=== PATIENT | female | born 1945 | race Two or more races ===

== ENCOUNTER 2025-01-07 21:25 | Inpatient (IN) | payer OTHER, MEDICAID ==
[~2025-01-07] VITALS: Ht 154.9 cm; Wt 51.5 kg
[2025-01-07 22:01] LABS: BASOPHILS # (AUTO) 0.1 K/UL (0.0-0.2); BASOPHILS % (AUTO) 0.7 % (0.0-2.0); EOSINOPHILS # (AUTO) 0.4 K/uL (0.0-0.7); EOSINOPHILS % (AUTO) 4.1 % (0.0-7.0); HEMATOCRIT 38.7 % (31.2-41.9); HEMOGLOBIN 12.6 g/dL (10.9-14.3); LYMPHOCYTES # (AUTO) 2.2 K/uL (0.8-4.8); LYMPHOCYTES % (AUTO) 24.4 % (20.5-51.5); MEAN CORPUSCULAR HEMOGLOBIN 28.9 uug (24.7-32.8); MEAN CORPUSCULAR HGB CONC 33 g/dL (32.3-35.6); MEAN CORPUSCULAR VOLUME 88.5 fL (75.5-95.3); MONOCYTES # (AUTO) 0.6 K/uL (0.1-1.30); MONOCYTES % (AUTO) 7.3 % (0.0-11.0); NEUTROPHILS # (AUTO) 5.6 K/uL (1.8-8.9); NEUTROPHILS % (AUTO) 63.5 % (38.5-71.5); PLATELET COUNT (AUTO) 299 K/uL (179-408); RED BLOOD CELL COUNT(AUTO) 4.37 MIL/uL (3.63-4.92); WHITE BLOOD COUNT (AUTO) 8.8 K/uL (3.8-11.8)
[2025-01-07 22:04] LABS: DIFFERENTIAL COMMENT 1
[2025-01-07 22:05] LABS: CALCIUM 9.7 mg/dL (8.5-10.1); CARBON DIOXIDE 24 mmol/L (21-32); CHLORIDE 108 mmol/L (98-107); GLUCOSE 142 mg/dL (74-106); POTASSIUM 4.1 mmol/L (3.5-5.1); SODIUM SERUM 144 mmol/L (136-145); UREA NITROGEN, BLOOD 20 mg/dL (7-18)
[2025-01-07 22:11] LABS: ALANINE AMINOTRANSFERASE 12 U/L (14-59); ALBUMIN 3.3 g/dL (3.4-5.0); ALKALINE PHOSPHATASE 179 U/L (50-136); ASPARTATE AMINOTRANSFERASE 15 U/L (15-37); BILIRUBIN,DIRECT 0.2 mg/dL (0.0-0.2); BILIRUBIN,TOTAL 0.7 mg/dL (0.2-1.0); LIPASE 30 U/L (16-77); TOTAL PROTEIN, SERUM 7.3 g/dL (6.4-8.2)
[2025-01-07 22:34] LABS: *BILIRUBIN,URIN NEGATIVE (NEGATIVE); *BLOOD, URINE 2+ (NEGATIVE); *CLARITY,URINE CLOUDY (CLEAR); *COLOR,URINE YELLOW (YELLOW); *KETONES,URINE NEGATIVE (NEGATIVE); *PROTEIN,URINE 3+ (NEGATIVE); *UROBILINOGEN,URINE 0.2 E.U./dl (NORMAL); LEUKOCYTE ESTERASE ,URINE 2+ (NEGATIVE); NITRITE, URINE NEGATIVE (NEGATIVE); PH,URINE 6.5 (5.0-8.0); UGLUCOSE NEGATIVE (NEGATIVE)
[2025-01-07] MEDS: IV NS 1000 ML 1,000 ML IV PRN (22:54)
[2025-01-07 23:06] LABS: BACTERIA,URINE MODERATE /HPF (NONE SEEN); MUCUS,URINE MANY /LPF (0-FEW); SQUAMOUS EPITHELIAL CELL,UR FEW /HPF (NONE SEEN); WBC,URINE 50-80 /HPF (0-3)
[2025-01-07] MEDS ORDERED: SWABABLE VALVE TRANSFER SET EA MC ONE (23:21)
[2025-01-07] MEDS ORDERED: IOHEXOL 300MG/ML 100 ML INFUS..BTL ONE (23:21)
[2025-01-07] MEDS ORDERED: IV NORMAL SALINE 250 ML IV ONE (23:23)
[2025-01-08] MEDS ORDERED: MAGN400O6 PO (00:17)
[2025-01-08] MEDS ORDERED: HYDR-894 PO (00:17)
[2025-01-08] MEDS ORDERED: CYAN250010 PO (00:17)
[2025-01-08] MEDS ORDERED: SENN-302 PO (00:17)
[2025-01-08] MEDS ORDERED: POLY119P2 PO (00:17)
[2025-01-08] MEDS ORDERED: METF-440 PO (00:17)
[2025-01-08] MEDS ORDERED: SPIR25TA6 PO (00:17)
[2025-01-08] MEDS ORDERED: PIPERACILLIN/TAZOBACTAM/D5W 50 ML IV ONE (00:57)
[2025-01-08] MEDS: PIPERACILLIN SODIUM/TAZOBACTAM 3.375 G in IV DEXTROSE 5% 50 ML IV ONE (00:58)
[2025-01-08] MEDS ORDERED: ACETAMINOPHEN 325 MG TABLET PO PRN (01:30)
[2025-01-08] MEDS ORDERED: MAGNESIUM HYDROXIDE 30 ML LIQUID UDC PO PRN (01:30)
[2025-01-08] MEDS ORDERED: ONDANSETRON 4 MG/2 ML VIAL IV PRN (01:30)
[2025-01-08] MEDS ORDERED: REMEDY ESSENTIAL ZINC PASTE 113 GM TP PRN (01:30)
[2025-01-08] MEDS ORDERED: ENOXAPARIN SODIUM 40 MG/0.4 ML DISP.SYRIN SQ ONE ×2 (01:40→01:54)
[2025-01-08 06:45] VITALS: BP 124/62; TEMP 98.2; O2SAT 99
[2025-01-08 08:04] VITALS: BP 127/65; TEMP 97.7; O2SAT 96
[2025-01-08] MEDS: PANTOPRAZOLE SODIUM 40 MG TABLET.DR PO SCH (08:24)
[2025-01-08] MEDS: ENOXAPARIN SODIUM 40 MG/0.4 ML DISP.SYRIN SQ SCH (08:30)
[2025-01-08] MEDS ORDERED: HOME MED MISCELLANEOUS XX SCH (09:15)
[2025-01-08] MEDS ORDERED: DEXTROSE 50% 50 ML DISP.SYRIN IV PRN (09:15)
[2025-01-08] MEDS ORDERED: ACET325T53 PO (11:33)
[2025-01-08] MEDS ORDERED: AMLO-212 PO (11:33)
[2025-01-08] MEDS ORDERED: ATOR20TA PO (11:34)
[2025-01-08] MEDS ORDERED: ASPI-1169 PO (11:34)
[2025-01-08] MEDS ORDERED: BISA10SU61 RC (11:35)
[2025-01-08] MEDS ORDERED: SENN8.6T19 PO (11:38)
[2025-01-08] MEDS: BLOOD SUGAR DIAGNOSTIC 1 EACH STRIP VI SCH (11:39)
[2025-01-08 11:40] VITALS: BP 140/73; TEMP 98.3; O2SAT 98
[2025-01-08] MEDS ORDERED: PIPERACILLIN SODIUM/TAZOBACTAM 3.375 G in IV DEXTROSE 5% 50 ML IV SCH (14:00)
[2025-01-08] MEDS: PIPERACILLIN SODIUM/TAZOBACTAM 3.375 G in IV DEXTROSE 5% 100 ML IV SCH (15:04)
[2025-01-08 16:00] VITALS: BP_SYST 116; BP_SYST 142; BP_DIAS 66; BP_DIAS 67; TEMP 98.2; TEMP 98.7; O2SAT 98
[2025-01-08] MEDS: INSULIN REGULAR, HUMAN 1000 UNIT/10 ML VIAL SQ PRN (16:58)
[2025-01-08] MEDS: SENNOSIDES/DOCUSATE SODIUM TABLET PO SCH (18:00)
[2025-01-08 19:35] VITALS: BP 151/70; TEMP 98.5; O2SAT 97
[2025-01-09 05:23] VITALS: BP 151/68; TEMP 98; O2SAT 97
[2025-01-09 06:45] LABS: BASOPHILS % (AUTO) 0.7 % (0.0-2.0); EOSINOPHILS # (AUTO) 0.3 K/uL (0.0-0.7); EOSINOPHILS % (AUTO) 5.4 % (0.0-7.0); HEMATOCRIT 36.4 % (31.2-41.9); HEMOGLOBIN 11.7 g/dL (10.9-14.3); LYMPHOCYTES # (AUTO) 1.7 K/uL (0.8-4.8); LYMPHOCYTES % (AUTO) 27.4 % (20.5-51.5); MEAN CORPUSCULAR HEMOGLOBIN 28.6 uug (24.7-32.8); MEAN CORPUSCULAR HGB CONC 32 g/dL (32.3-35.6); MEAN CORPUSCULAR VOLUME 89.4 fL (75.5-95.3); MONOCYTES # (AUTO) 0.5 K/uL (0.1-1.30); MONOCYTES % (AUTO) 7.4 % (0.0-11.0); NEUTROPHILS # (AUTO) 3.7 K/uL (1.8-8.9); NEUTROPHILS % (AUTO) 59.1 % (38.5-71.5); PLATELET COUNT (AUTO) 256 K/uL (179-408); RED BLOOD CELL COUNT(AUTO) 4.07 MIL/uL (3.63-4.92); RED CELL DISTRIBUTION WIDTH 15.3 % (12.3-17.7); WHITE BLOOD COUNT (AUTO) 6.3 K/uL (3.8-11.8)
[2025-01-09 07:00] LABS: DIFFERENTIAL COMMENT 1
[2025-01-09 07:04] LABS: CALCIUM 9.2 mg/dL (8.5-10.1); CARBON DIOXIDE 25 mmol/L (21-32); CHLORIDE 110 mmol/L (98-107); CREATININE 1.2 mg/dL (0.6-1.3); GLUCOSE 127 mg/dL (74-106); MAGNESIUM 1.7 mg/dL (1.8-2.4); PHOSPHOROUS 3.4 mg/dL (2.5-4.9); POTASSIUM 3.7 mmol/L (3.5-5.1); SODIUM SERUM 144 mmol/L (136-145); UREA NITROGEN, BLOOD 15 mg/dL (7-18)
[2025-01-09] MEDS ORDERED: POLYETHYLENE GLYCOL 3350 238 GM POWDER PO SCH (09:00)
[2025-01-09] MEDS: MAGNESIUM OXIDE 400 MG TABLET PO ONE (09:51)
[2025-01-09] MEDS: METFORMIN HCL 500 MG TABLET PO SCH (09:51)
[2025-01-09] MEDS: CYANOCOBALAMIN 1,000 MCG TABLET PO SCH (09:52)
[2025-01-09] MEDS: MIRALAX 17 GM POWD.PACK PO SCH (09:52)
[2025-01-09 11:50] VITALS: BP 152/72; TEMP 98.5; O2SAT 99
[2025-01-09 15:33] VITALS: BP 141/56; TEMP 97.4; O2SAT 97
[2025-01-09 19:25] VITALS: BP 167/67; TEMP 98.2; O2SAT 97
[2025-01-10 05:52] VITALS: BP 145/65; TEMP 98.1; O2SAT 99
[2025-01-10 11:00] VITALS: BP 147/81; TEMP 98.4; O2SAT 100
[2025-01-10 15:12] VITALS: BP 149/56; TEMP 98.2; O2SAT 98
[2025-01-10] MEDS ORDERED: MAGNESIUM HYDROXIDE 30 ML LIQUID UDC PO PRN (17:30)
[2025-01-10] MEDS ORDERED: BISACODYL 10 MG SUPP.RECT RC PRN (17:30)
[2025-01-10 19:00] VITALS: BP 157/63; TEMP 98.5; O2SAT 97
[2025-01-10] MEDS ORDERED: SENNOSIDES 1 TABLET PO SCH (21:00)
[2025-01-10] MEDS: ATORVASTATIN 20 MG TABLET PO SCH (21:38)
[2025-01-11 04:00] VITALS: BP 141/70; TEMP 97.6; O2SAT 99
[2025-01-11] MEDS: SPIRONOLACTONE 25 MG TABLET PO SCH (08:54)
[2025-01-11] MEDS: AMLODIPINE 5 MG TABLET PO SCH (08:54)
[2025-01-11] MEDS: ASPIRIN 81 MG TAB.CHEW PO SCH (08:54)
[2025-01-11 11:32] VITALS: BP 147/69; TEMP 98.6; O2SAT 98
[2025-01-11] MEDS: CEFAZOLIN 1 G in IV DEXTROSE 5% 50 ML IV SCH (12:30)
[2025-01-11] MEDS ORDERED: CEFAZOLIN 1 G in IV DEXTROSE 5% 50 ML IV SCH (14:00)
[2025-01-11 15:07] VITALS: BP 150/76; TEMP 98.4; O2SAT 99
[2025-01-11 19:25] VITALS: BP 169/77; TEMP 98.4; O2SAT 96
[2025-01-11] MEDS: hydrALAZINE HCL 25 MG TABLET PO PRN (20:55)
[2025-01-12 05:54] VITALS: BP_SYST 166; BP_SYST 173; BP_DIAS 71; BP_DIAS 75; TEMP 97.8; O2SAT 93
[2025-01-12 11:41] VITALS: BP 126/61; TEMP 98; O2SAT 96
[2025-01-12] MEDS ORDERED: GLUCERNA SHAKE 237 ML CAN PO SCH (17:00)
== END 2025-01-12 15:15 | DRG 690 ==
LOC: ER 21:25 → MEDSURG3 01-08 06:02
PROVIDERS: ADMIT Student in an Organized Health Care Education/Training Program; ATTEND Nurse Practitioner Acute Care
PROC: 05H933Z Insertion of Infusion Device into Right Brachial Vein, Percutaneous Approach (ICD-10-PCS; principal; 2025-01-08)
DX: N30.90 Cystitis, unspecified without hematuria (principal); I69.351 Hemiplegia and hemiparesis following cerebral infarction affecting right dominant side; D68.59 Other primary thrombophilia; K62.89 Other specified diseases of anus and rectum; B96.20 Unspecified Escherichia coli [E. coli] as the cause of diseases classified elsewhere; B95.1 Streptococcus, group B, as the cause of diseases classified elsewhere; D39.0 Neoplasm of uncertain behavior of uterus; E78.5 Hyperlipidemia, unspecified; Z66 Do not resuscitate; E11.9 Type 2 diabetes mellitus without complications; E86.0 Dehydration; F01.50 Vascular dementia, unspecified severity, without behavioral disturbance, psychotic disturbance, mood disturbance, and anxiety; I10 Essential (primary) hypertension; R79.89 Other specified abnormal findings of blood chemistry; K21.9 Gastro-esophageal reflux disease without esophagitis; Z79.899 Other long term (current) drug therapy; Z74.09 Other reduced mobility; Z79.84 Long term (current) use of oral hypoglycemic drugs; Z79.82 Long term (current) use of aspirin
CPT/HCPCS: 36415; 83690; 83735; 84100; 85025; 87077; 87086; A4606; A4663; C1758; G0378; J0690; J1650; J1815; J2543; J7040; Q9967

== ENCOUNTER 2025-02-27 17:15 | Inpatient (IN) | payer MEDICARE, OTHER ==
[~2025-02-27] VITALS: Ht 167.6 cm; Wt 71.4 kg
[~2025-02-27 17:15] MED LIST: ACET325T53 PO; AMLO-212 PO; ASPI-1169 PO; ATOR20TA PO; BISA10SU61 RC; CYAN250010 PO; HYDR-894 PO; MAGN400O6 PO; METF-440 PO; POLY119P2 PO; SENN8.6T19 PO; SPIR25TA6 PO
[2025-02-27] MEDS ORDERED: CEFTRIAXONE /D5W 50ML IVPB **ER PYXIS IV ONE (18:01)
[2025-02-27] MEDS: CEFTRIAXONE 1 G in IV DEXTROSE 5% 50 ML IV ONE (18:11)
[2025-02-27 18:31] LABS: *BILIRUBIN,URIN NEGATIVE (NEGATIVE); *BLOOD, URINE NEGATIVE (NEGATIVE); *CLARITY,URINE CLEAR (CLEAR); *COLOR,URINE YELLOW (YELLOW); *KETONES,URINE TRACE (NEGATIVE); *PROTEIN,URINE 2+ (NEGATIVE); *UROBILINOGEN,URINE 0.2 E.U./dl (NORMAL); LEUKOCYTE ESTERASE ,URINE TRACE (NEGATIVE); NITRITE, URINE POSITIVE (NEGATIVE); UGLUCOSE NEGATIVE (NEGATIVE)
[2025-02-27 18:42] LABS: PLATELET COUNT (AUTO) 329 K/uL (179-408); RED BLOOD CELL COUNT(AUTO) 4.15 MIL/uL (3.63-4.92); RED CELL DISTRIBUTION WIDTH 15.0 % (12.3-17.7); WHITE BLOOD COUNT (AUTO) 10.8 K/uL (3.8-11.8)
[2025-02-27 18:51] LABS: CREATININE 1.0 mg/dL (0.6-1.3); SODIUM SERUM 142 mmol/L (136-145); UREA NITROGEN, BLOOD 19 mg/dL (7-18)
[2025-02-27 18:58] LABS: SQUAMOUS EPITHELIAL CELL,UR FEW /HPF (NONE SEEN)
[2025-02-27 20:55] VITALS: BP 119/79; TEMP 98.9; O2SAT 93
[2025-02-27] MEDS: SENNOSIDES 1 TABLET PO SCH (21:00)
[2025-02-27] MEDS ORDERED: ACETAMINOPHEN 325 MG TABLET-SA PATIENTS-PAIN ONLY PO PRN (21:00)
[2025-02-27] MEDS ORDERED: BISACODYL 10 MG SUPP.RECT RC PRN ×2 (21:00→21:15)
[2025-02-27] MEDS ORDERED: MAGNESIUM HYDROXIDE 30 ML LIQUID UDC PO PRN (21:00)
[2025-02-27] MEDS: ATORVASTATIN 20 MG TABLET PO SCH (21:00)
[2025-02-27] MEDS ORDERED: ONDANSETRON 4 MG/2 ML VIAL IV PRN (21:15)
[2025-02-27] MEDS ORDERED: DEXTROSE 50% 50 ML DISP.SYRIN IV PRN (21:15)
[2025-02-28] MEDS: MORPHINE SULFATE 2 MG/1 ML DISP.SYRIN IV PRN (05:14)
[2025-02-28 05:53] VITALS: BP 143/67; TEMP 97.9; O2SAT 95
[2025-02-28] MEDS: PANTOPRAZOLE SODIUM 40 MG TABLET.DR PO SCH (06:04)
[2025-02-28] MEDS: BLOOD SUGAR DIAGNOSTIC 1 EACH STRIP VI SCH (06:34)
[2025-02-28 07:16] LABS: PLATELET COUNT (AUTO) 265 K/uL (179-408); RED BLOOD CELL COUNT(AUTO) 4.03 MIL/uL (3.63-4.92); RED CELL DISTRIBUTION WIDTH 15.0 % (12.3-17.7); WHITE BLOOD COUNT (AUTO) 7.7 K/uL (3.8-11.8)
[2025-02-28 07:29] LABS: ASPARTATE AMINOTRANSFERASE 9 U/L (15-37); CREATININE 1.0 mg/dL (0.6-1.3); SODIUM SERUM 142 mmol/L (136-145); TOTAL PROTEIN, SERUM 7.1 g/dL (6.4-8.2); UREA NITROGEN, BLOOD 19 mg/dL (7-18)
[2025-02-28 07:45] LABS: IRON, SERUM 36 ug/dL (50-175)
[2025-02-28] MEDS: SPIRONOLACTONE 25 MG TABLET PO SCH (08:45)
[2025-02-28] MEDS: CYANOCOBALAMIN 1,000 MCG TABLET PO SCH (08:46)
[2025-02-28] MEDS: ASPIRIN 81 MG TAB.CHEW PO SCH (08:46)
[2025-02-28] MEDS: AMLODIPINE 5 MG TABLET PO SCH (08:46)
[2025-02-28 12:17] VITALS: BP 149/71; TEMP 98.1; O2SAT 97
[2025-02-28] MEDS: INSULIN REGULAR, HUMAN 1000 UNIT/10 ML VIAL SQ PRN (12:23)
[2025-02-28] MEDS: POTASSIUM CHLORIDE 20 MEQ TAB.PRT.SR PO ONE (13:31)
[2025-02-28] MEDS ORDERED: CYAN100096 PO (14:57)
[2025-02-28 16:44] VITALS: BP 149/78; TEMP 98.4; O2SAT 96
[2025-02-28] MEDS: CEFTRIAXONE 1 G in IV DEXTROSE 5% 50 ML IV SCH (17:20)
[2025-02-28 19:26] VITALS: BP 142/71; TEMP 98.8; O2SAT 94
[2025-02-28] MEDS: DOCUSATE SODIUM 100 MG CAPSULE PO SCH (20:48)
[2025-03-01 06:16] VITALS: BP_SYST 138; BP_SYST 139; BP_DIAS 70; BP_DIAS 73; TEMP 98.3; O2SAT 100
[2025-03-01 11:00] VITALS: BP 163/70; TEMP 98.2; O2SAT 96
[2025-03-01 15:01] VITALS: BP 116/50; TEMP 97.6; O2SAT 100
[2025-03-01 19:52] VITALS: BP 138/72; TEMP 98.3; O2SAT 97
[2025-03-01] MEDS ORDERED: PIPERACILLIN SODIUM/TAZOBACTAM 3.375 G in IV DEXTROSE 5% 50 ML IV SCH (22:00)
[2025-03-01] MEDS ORDERED: PIPERACILLIN/TAZOBACTAM/D5W 50 ML IV ONE (23:16)
[2025-03-01] MEDS: PIPERACILLIN SODIUM/TAZOBACTAM 3.375 G in IV DEXTROSE 5% 50 ML IV SCH (23:32)
[2025-03-02] MEDS ORDERED: PIPERACILLIN/TAZOBACTAM/D5W 50 ML IV ONE (05:33)
[2025-03-02 06:40] VITALS: BP 137/102; TEMP 98.7; O2SAT 90
[2025-03-02 11:03] LABS: PLATELET COUNT (AUTO) 327 K/uL (179-408); RED BLOOD CELL COUNT(AUTO) 4.10 MIL/uL (3.63-4.92); RED CELL DISTRIBUTION WIDTH 15.2 % (12.3-17.7); WHITE BLOOD COUNT (AUTO) 4.8 K/uL (3.8-11.8)
[2025-03-02 11:36] VITALS: BP 147/64; TEMP 97.7; O2SAT 100
[2025-03-02] MEDS ORDERED: DOCU-141 PO (12:19)
[2025-03-02] MEDS ORDERED: SULF1TAB48 PO (12:19)
[2025-03-02] MEDS: PIPERACILLIN SODIUM/TAZOBACTAM 3.375 G in IV DEXTROSE 5% 100 ML IV SCH (13:12)
[2025-03-03 08:07] LABS: CANCER AG, 125 49.9 U/mL (0.0-38.1); CARCINOEMBRYONIC AG (CEA) 4.3 ng/mL (0.0-4.7)
== END 2025-03-02 15:20 | DRG 388 ==
LOC: ER 17:15 → MEDSURG3 22:06
PROVIDERS: ADMIT Internal Medicine; ATTEND Internal Medicine
DX: K56.41 Fecal impaction (principal); G92.8 Other toxic encephalopathy; D68.59 Other primary thrombophilia; I69.351 Hemiplegia and hemiparesis following cerebral infarction affecting right dominant side; F01.53 Vascular dementia, unspecified severity, with mood disturbance; N13.6 Pyonephrosis; F01.54 Vascular dementia, unspecified severity, with anxiety; K52.89 Other specified noninfective gastroenteritis and colitis; I69.320 Aphasia following cerebral infarction; B96.4 Proteus (mirabilis) (morganii) as the cause of diseases classified elsewhere; B96.20 Unspecified Escherichia coli [E. coli] as the cause of diseases classified elsewhere; F32.A Depression, unspecified; E78.5 Hyperlipidemia, unspecified; K21.9 Gastro-esophageal reflux disease without esophagitis; Z74.09 Other reduced mobility; C55 Malignant neoplasm of uterus, part unspecified; E11.65 Type 2 diabetes mellitus with hyperglycemia; I11.0 Hypertensive heart disease with heart failure; I50.9 Heart failure, unspecified; Z87.442 Personal history of urinary calculi; Z79.84 Long term (current) use of oral hypoglycemic drugs; Z79.899 Other long term (current) drug therapy; Z66 Do not resuscitate
CPT/HCPCS: 36415; 71045; 76770; 76856; 82378; 83550; 83735; 84100; 84443; 85025; 87040; 87077; 87086; A4606; A4663; C1758; G0378; J0696; J1815; J2270; J2543